=== PATIENT | female | born 1990 | race African-American/Black ===

== ENCOUNTER 2022-05-21 21:18 | Emergency (ER) | payer MEDICAID, OTHER ==
[~2022-05-21] VITALS: Ht 160 cm; Wt 57.0 kg
[~2022-05-21 21:18] MED LIST: FERR-43 PO; PREN-88 PO
[2022-05-21 21:59] VITALS: BP 143/106
== END 2022-05-22 01:07 | disposition left against medical advice (07) ==
LOC: ER 21:18
DX: Z53.21 Procedure and treatment not carried out due to patient leaving prior to being seen by health care provider (principal)